=== PATIENT | male | born 2000 | race African-American/Black ===

== ENCOUNTER 2023-08-20 16:28 | Emergency (ER) | payer OTHER ==
[2023-08-20 16:47] VITALS: BP 169/106; PULSE 89; RESP 16; TEMP 98.4; BMI 33.0
[2023-08-20] MEDS ORDERED: morphine SULFATE 4 MG/ML VIAL IM ONE (17:48)
[2023-08-20] MEDS ORDERED: morphine CARPU-JECT 2 MG/1 ML DISP.SYRIN IM ONE (17:48)
[2023-08-20] MEDS ORDERED: LIDOCAINE HCL 2% (50ML VIAL) INF ONE (17:49)
[2023-08-20] MEDS ORDERED: morphine SULFATE 4 MG/ML VIAL ONE (17:56)
[2023-08-20] MEDS ORDERED: LIDOCAINE HCL 2% (20ML MULTI-DOSE VIAL) ONE (17:56)
== END 2023-08-20 20:40 | disposition home or self-care (01) ==
LOC: FER 16:28
PROC: 0RSJXZZ Reposition Right Shoulder Joint, External Approach (ICD-10-PCS; principal; 2023-08-20)
PROC: 3E023GC Introduction of Other Therapeutic Substance into Muscle, Percutaneous Approach (ICD-10-PCS; 2023-08-20)
DX: S43.014A Anterior dislocation of right humerus, initial encounter (principal); W00.0XXA Fall on same level due to ice and snow, initial encounter; Y92.9 Unspecified place or not applicable
CPT/HCPCS: 73030-TC-RT-FY; 99284-25